=== PATIENT | female | born 1950 | race Caucasian/White ===

== ENCOUNTER → 2017-01-21 | Outpatient (CLI) | payer MEDICARE, OTHER ==
[2015-04-06 11:37] VITALS: BP 171/74
[~2017-01-21] MED LIST: ALPR0.25 PO; ATOR40TA59 PO; BENZ100C PO; DIPH25CA58 PO; GABA600T2 PO; LEVO50TA5 PO; MELA3TAB2 PO; OXYB92GE TD; PANT40TA5 PO; TRIA1CAP3 PO; WARF1TAB7 PO; [UNRECOGNIZED DRUG - CODE] TP
--- NOTE | 2017-01-21 16:16 | RAD ---
EXAM: Carotid Doppler sonogram. HISTORY: Headaches. TECHNIQUE: Christiansen scale and color Doppler sonographic evaluation of the neck with spectral waveform analysis was performed and static images are submitted for review. FINDINGS: RIGHT: The peak systolic velocity within the common carotid artery is 75 cm/sec. The peak systolic velocity within the internal carotid artery is 74 cm/sec and the end diastolic velocity within the internal carotid artery is 26 cm/sec. The ICA/CCA ratio is 1.0. Grayscale images demonstrate no significant plaquing. LEFT: The peak systolic velocity within the common carotid artery is 76 cm/sec. The peak systolic velocity within the internal carotid artery is 94 cm/sec and the end diastolic velocity within the internal carotid artery is 38 cm/sec. The ICA/CCA ratio is 1.2. Grayscale images demonstrate no significant plaquing. There is antegrade flow within both vertebral arteries. IMPRESSION: 1. No evidence of hemodynamically significant stenosis. PQRS Compliance Statement - Stenosis calculations for CT, MR and conventional angiography are based upon measurement of the distal ICA diameter in accordance with the NASCET methodology. Stenosis calculations for carotid ultrasound studies are derived from validated velocity criteria which are known to correlate with the NASCET methodology.
== END | disposition home or self-care (01) ==
LOC: US 14:58
PROVIDERS: ATTEND Family Medicine
DX: R51 Headache (principal); G45.9 Transient cerebral ischemic attack, unspecified; F17.200 Nicotine dependence, unspecified, uncomplicated
CPT/HCPCS: 93880

== ENCOUNTER → 2017-02-18 | Outpatient (CLI) | payer MEDICARE, OTHER ==
[2015-04-06 11:37] VITALS: BP 171/74
--- NOTE | 2017-02-18 16:02 | RAD ---
EXAM: MAMMO KRISTY SCREENING BILATERAL HISTORY: Routine Screening. COMPARISON: 08/03/2013 Standard mammographic views are obtained of the bilateral breasts. Additionally three-dimensional tomographic images obtained. This study was interpreted with the benefit of Computerized Aided Detection (CAD). FINDINGS: The breast parenchyma is heterogeneously dense, which could reduce sensitivity of mammography. Breast parenchyma level C.. There is no definite new suspicious spiculated mass. There is repeat demonstration of some scattered calcifications throughout the bilateral breasts. IMPRESSION: No definite new suspicious mass. BI-RADS CATEGORY: 2 BENIGN FINDING RECOMMENDED FOLLOW-UP: 12M 12 MONTH FOLLOW-UP PQRS compliance statement: Patient information was entered into a reminder system with a target due date for the next mammogram. Mammography is a sensitive method for finding small breast cancers, but it does not detect them all and is not a substitute for careful clinical examination. A negative mammogram does not negate a clinically suspicious finding and should not result in delay in biopsying a clinically suspicious abnormality. "Our facility is accredited by the [employer] Mammography Program."
--- NOTE | 2017-02-18 16:56 | RAD ---
INDICATION: BACK PAIN COMPARISON: None. TECHNIQUE: Axial CT images were obtained through the lumbar spine. FINDINGS: Grade 1 anterolisthesis of L4 on 5. No definite acute fracture. Multilevel degenerative changes with disc protrusions and osteophyte formation as well as facet hypertrophy. Couple of subcentimeter sclerotic foci. Most commonly from bone island unless the patient has history of neoplasm. T12-L1: Osteophyte formation at vertebral body endplate with broad-based posterior disc protrusion. Mild central canal stenosis. Neural foramina are patent. L1-2: Mild retrolisthesis with anterior indentation of the thecal sac. Central canal is grossly patent. Mild bilateral neural foraminal stenosis from osteophyte formation and mild disc protrusion. L2-3: Osteophyte formation as well as broad-based posterior disc protrusion. Facet hypertrophy. Mild central canal narrowing. Mild to moderate right and mild left neural foraminal stenosis. L3-4: Broad-based posterior disc protrusion as well as osteophyte formation at the vertebral body endplates and facet hypertrophy. Mild to moderate central canal stenosis in trefoil pattern. Moderate right and puxo-ca-mrhphyph left neural foraminal stenosis. L4-5: Facet hypertrophy. Grade 1 anterolisthesis. Posterior disc protrusion with uncovering of the posterior aspect of the disc. At least moderate central canal stenosis. Moderate left greater than right neural foraminal stenosis. L5-S1: Central disc protrusion with anterior indentation of the thecal sac with mild central canal narrowing. Mild encroachment on the inferior aspect of the neural foramina from osteophyte formation without high-grade stenosis. IMPRESSION: Multilevel degenerative changes throughout the lumbar spine with disc protrusions, osteophyte formation at the vertebral body endplates as well as facet hypertrophy contributing to multilevel central canal and neural foraminal stenosis as described above. One of the most severe levels is at L4-5. PQRS Compliance Statement: One or more of the following individualized dose reduction techniques were utilized for this examination: 1. Automated exposure control 2. Adjustment of the mA and/or kV according to patient size 3. Use of iterative reconstruction technique
== END | disposition home or self-care (01) ==
LOC: MAMMO 14:17
PROVIDERS: ATTEND Family Medicine
DX: Z12.31 Encounter for screening mammogram for malignant neoplasm of breast (principal); M48.061 Spinal stenosis, lumbar region without neurogenic claudication; M51.26 Other intervertebral disc displacement, lumbar region; M47.896 Other spondylosis, lumbar region; M25.78 Osteophyte, vertebrae; M24.28 Disorder of ligament, vertebrae
CPT/HCPCS: 72131; 77063; G0202; 77067

== ENCOUNTER → 2017-03-26 | Outpatient (CLI) | payer MEDICARE, OTHER ==
[2015-04-06 11:37] VITALS: BP 171/74
[~2017-03-26] MED LIST changes: +AMLO5TAB4 PO; +ASPI325T8 PO; +LACT1CAP19 PO; +LACT1CAP21 PO; +NITR100C63 PO; +OXYB5TAB33 PO
== END | disposition home or self-care (01) ==
LOC: SURG 13:55
PROVIDERS: ATTEND Anesthesiology
DX: M47.816 Spondylosis without myelopathy or radiculopathy, lumbar region (principal); K21.9 Gastro-esophageal reflux disease without esophagitis; M19.91 Primary osteoarthritis, unspecified site; E03.9 Hypothyroidism, unspecified; Z88.6 Allergy status to analgesic agent; Z88.1 Allergy status to other antibiotic agents; Z88.0 Allergy status to penicillin; Z88.2 Allergy status to sulfonamides; Z86.73 Personal history of transient ischemic attack (TIA), and cerebral infarction without residual deficits
CPT/HCPCS: 64493; 64494; 64495; 99204

== ENCOUNTER → 2017-03-28 | Day surgery (SDC) | payer MEDICARE, OTHER ==
[2015-04-06 11:37] VITALS: BP 171/74
[~2017-03-28] MED LIST changes: -AMLO5TAB4 PO; -ASPI325T8 PO; +BUPIVACAINE MPF 0.25% 10 ML VIAL. ONE; +DEXAMETHASONE SOD PHOS 4 MG/ML VIAL ONE; +IV RINGERS SOLUTION,LACTATED 1,000 ML IV ONE; -LACT1CAP19 PO; -LACT1CAP21 PO; +LIDOCAINE 1% PF 30 ML VIAL. ONE; +LIDOCAINE 2% PF Vial for OR 5 ML VIAL. ONE; -NITR100C63 PO; -OXYB5TAB33 PO; +PROPOFOL 40 ML IV ONE
== END | disposition home or self-care (01) ==
LOC: SURG 13:25
PROVIDERS: ATTEND Internal Medicine Gastroenterology
DX: K64.8 Other hemorrhoids (principal); K57.30 Diverticulosis of large intestine without perforation or abscess without bleeding; D50.9 Iron deficiency anemia, unspecified; K22.8 Other specified diseases of esophagus; K92.2 Gastrointestinal hemorrhage, unspecified; K31.89 Other diseases of stomach and duodenum; I10 Essential (primary) hypertension; E03.9 Hypothyroidism, unspecified; M19.91 Primary osteoarthritis, unspecified site; Z86.73 Personal history of transient ischemic attack (TIA), and cerebral infarction without residual deficits; Z88.6 Allergy status to analgesic agent; Z88.2 Allergy status to sulfonamides; Z88.8 Allergy status to other drugs, medicaments and biological substances
CPT/HCPCS: 43239; 45378; J1100; J2001; J2704; J3490; J7120

== ENCOUNTER → 2017-04-09 | Outpatient (CLI) | payer MEDICARE, OTHER ==
[2015-04-06 11:37] VITALS: BP 171/74
[~2017-04-09] MED LIST changes: -DEXAMETHASONE SOD PHOS 4 MG/ML VIAL ONE; -IV RINGERS SOLUTION,LACTATED 1,000 ML IV ONE; -LIDOCAINE 2% PF Vial for OR 5 ML VIAL. ONE; -PROPOFOL 40 ML IV ONE
== END | disposition home or self-care (01) ==
LOC: SURG 15:33
PROVIDERS: ATTEND Anesthesiology
DX: M47.816 Spondylosis without myelopathy or radiculopathy, lumbar region (principal); J44.9 Chronic obstructive pulmonary disease, unspecified; I10 Essential (primary) hypertension; M19.91 Primary osteoarthritis, unspecified site; E07.9 Disorder of thyroid, unspecified; Z72.89 Other problems related to lifestyle; Z90.710 Acquired absence of both cervix and uterus; Z88.0 Allergy status to penicillin
CPT/HCPCS: 64493; 64494; J2001; J3490

== ENCOUNTER 2017-04-13 14:25 | Inpatient (IN) | payer MEDICARE, OTHER ==
[~2017-04-13] VITALS: Ht 152.4 cm; Wt 86.8 kg
[~2017-04-13 14:25] MED LIST changes: -BUPIVACAINE MPF 0.25% 10 ML VIAL. ONE; -LIDOCAINE 1% PF 30 ML VIAL. ONE
--- NOTE | 2017-04-13 15:06 | RAD ---
CT head without contrast 04/13/2017 Clinical indication: Headache and dizziness. Comparison: None. Technique: Multiple CT images of the head were obtained without contrast. RS Compliance Statement: One or more of the following individualized dose reduction techniques were utilized for this examination: 1. Automated exposure control 2. Adjustment of the mA and/or kV according to patient size 3. Use of iterative reconstruction technique Findings: No acute intracranial hemorrhage or extra-axial fluid collection. The ortiz-white matter interfaces are maintained. No midline shift. The ventricles and subarachnoid spaces are normal in size and configuration for age. The basal cisterns are patent and. There is possible air communication from the right external auditory canal to the mastoid air cells as seen on series 2/image 6. Impression: 1. No acute intracranial hemorrhage. 2. Possible abnormal communication of the right external auditory canal with the mastoid air cells, may be due to underlying posterior wall erosion. Clinical correlation is recommended. Consideration for CT temporal bone for further evaluation.
--- NOTE | 2017-04-13 15:09 | ED.ADGEN ---
Past History Past Medical History: Arthritis, GERD, Hypertension, Other Past Surgical History: Other Alcohol Use: Rarely Drug Use: None Adult General HPI HPI Patient is a 66-year-old female presents with chest pressure and dizziness 6 excisional female presents with chest pressure and dizziness. Dizziness began this morning. She's "bouncing off the castillo". She does have some nausea with it. She's not had any difficulty speaking no focal weakness. She's had some blurred vision but she says she is not seeing double. She's not had any difficulty finding words. Symptoms are constant. Currently her symptoms have improved somewhat. She's been having a chest heaviness since this morning. No chest pain. No radiation of the heaviness of the shoulder to the back of the neck or the front of the neck. She's not had any shortness of breath with it no peripheral edema or pain in the legs. She denies history of heart problems in the past. She does have lupus. She is on antibiotics for GERD. Not had any vomiting. Review of Systems Review of Systems Constitutional: Denies fever or chills Eyes: Denies change in visual acuity, redness, or eye pain HENT: Denies nasal congestion or sore throat Respiratory: Denies cough or shortness of breath Cardiovascular: No additional information not addressed in HPI GI: Denies abdominal pain, nausea, vomiting, bloody stools or diarrhea : Denies dysuria or hematuria Musculoskeletal: Denies back pain or joint pain Integument: Denies rash or skin lesions Neurologic: Denies headache, focal weakness or sensory changes Endocrine: Denies polyuria or polydipsia All other systems were reviewed and found to be within normal limits, except as documented in this note. Current Medications Current Medications Current Medications Medications (Trade) Dose Ordered Sig/[facility] Start Time Stop Time Status Last Admin Dose Admin Aspirin (Children'S Aspirin) 324 mg 1X ONCE 04/13/17 16:15 04/13/17 17:24 DC 04/13/17 16:33 324 MG Allergies Allergies Allergies Coded Allergies Type Severity Reaction Last Updated Verified Penicillins Allergy Intermediate 04/03/15 Yes Sulfa (Sulfonamide Antibiotics) Allergy Intermediate 04/03/15 Yes aspirin Allergy Intermediate 04/03/15 Yes cephalexin Allergy Intermediate 04/03/15 Yes codeine Allergy Intermediate 04/03/15 Yes ceftriaxone Adverse Reaction Intermediate Nausea 04/05/15 Yes Physical Exam Physical Exam Constitutional: Well developed, well nourished, no acute distress, non-toxic appearance. HENT: Normocephalic, atraumatic, bilateral external ears normal, oropharynx moist, no oral exudates, nose normal. Eyes: PERRLA, EOMI, conjunctiva normal, no discharge. Neck: Normal range of motion, no tenderness, supple, no stridor. Cardiovascular:Heart rate regular rhythm, no murmur Lungs & Thorax: Bilateral breath sounds clear to auscultation Abdomen: Bowel sounds normal, soft, no tenderness, no masses, no pulsatile masses. Skin: Warm, dry, no erythema, no rash. Back: No tenderness, no CVA tenderness. Extremities: No tenderness, no cyanosis, no clubbing, ROM intact, no edema. Neurologic: Alert and oriented X 3, normal motor function, normal sensory function, no focal deficits noted. Normal [id number]. Normal speech. Psychologic: Affect normal, judgement normal, mood normal. Current Patient Data Vital Signs Vital Signs Date Time Temp Pulse Resp B/P (MAP) Pulse Ox O2 Delivery O2 Flow Rate FiO2 04/13/17 14:39 98.2 79 20 98 Room Air Lab Results Laboratory Tests Test 04/13/17 15:00 04/13/17 15:15 White Blood Count 7.7 x10^3/uL (4.0-11.0) Red Blood Count 3.75 x10^6/uL (3.50-5.40) Hemoglobin 10.6 g/dL (12.0-15.5) L Hematocrit 32.8 % (36.0-47.0) L Mean Corpuscular Volume 88 fL (79-100) Mean Corpuscular Hemoglobin 28 pg (25-35) Mean Corpuscular Hemoglobin Concent 32 g/dL (31-37) Red Cell Distribution Width 19.7 % (11.5-14.5) H Platelet Count 264 x10^3/uL (140-400) Neutrophils (%) (Auto) 58 % (31-73) Lymphocytes (%) (Auto) 29 % (24-48) Monocytes (%) (Auto) 8 % (0-9) Eosinophils (%) (Auto) 5 % (0-3) H Basophils (%) (Auto) 1 % (0-3) Neutrophils # (Auto) 4.5 x10^3uL (1.8-7.7) Lymphocytes # (Auto) 2.2 x10^3/uL (1.0-4.8) Monocytes # (Auto) 0.6 x10^3/uL (0.0-1.1) Eosinophils # (Auto) 0.4 x10^3/uL (0.0-0.7) Basophils # (Auto) 0.1 x10^3/uL (0.0-0.2) Sodium Level 144 mmol/L (136-145) Potassium Level 4.0 mmol/L (3.5-5.1) Chloride Level 107 mmol/L (98-107) Carbon Dioxide Level 28 mmol/L (21-32) Anion Gap 9 (6-14) Blood Urea Nitrogen 18 mg/dL (7-20) Creatinine 0.9 mg/dL (0.6-1.0) Estimated GFR (Cockcroft-Gault) 62.6 BUN/Creatinine Ratio 20 (6-20) Glucose Level 93 mg/dL (70-99) Calcium Level 9.3 mg/dL (8.5-10.1) Total Bilirubin 0.3 mg/dL (0.2-1.0) Aspartate Amino Transferase (AST) 12 U/L (15-37) L Alanine Aminotransferase (ALT) 16 U/L (14-59) Alkaline Phosphatase 72 U/L (46-116) Troponin I Quantitative < 0.017 ng/mL (0-0.055) DV-Sqg-U-Type Natriuretic Peptide 164 pg/mL (0-124) H Total Protein 6.5 g/dL (6.4-8.2) Albumin 3.8 g/dL (3.4-5.0) Albumin/Globulin Ratio 1.4 (1.0-1.7) Urine Collection Type Unknown Urine Color Yellow Urine Clarity Hazy Urine pH 6.0 Urine Specific [place] 1.025 Urine Protein Neg (NEG-TRACE) Urine Glucose (UA) Neg mg/dL (NEG) Urine Ketones (Stick) Neg mg/dL (NEG) Urine Blood Small (NEG) Urine Nitrite Neg (NEG) Urine Bilirubin Neg (NEG) Urine Urobilinogen Dipstick 0.2 mg/dL (0.2 mg/dL) Urine Leukocyte Esterase Small (NEG) Urine RBC 6-10 /HPF (0-2) Urine WBC 11-20 /HPF (0-4) Urine Squamous Epithelial Cells Mod /LPF Urine Bacteria Few /HPF (0-FEW) EKG EKG []EKG is normal sinus rhythm with a leftward axis deviation. RSR'; Rate of 74. No acute ischemic changes. Radiology/Procedures Radiology/Procedures []REASON: diziness PROCEDURE: CT HEAD WO CONTRAST CT head without contrast 04/13/2017 Clinical indication: Headache and dizziness. Comparison: None. Technique: Multiple CT images of the head were obtained without contrast. PQRS Compliance Statement: One or more of the following individualized dose reduction techniques were utilized for this examination: 1. Automated exposure control 2. Adjustment of the mA and/or kV according to patient size 3. Use of iterative reconstruction technique Findings: No acute intracranial hemorrhage or extra-axial fluid collection. The ortiz-white matter interfaces are maintained. No midline shift. The ventricles and subarachnoid spaces are normal in size and configuration for age. The basal cisterns are patent and. There is possible air communication from the right external auditory canal to the mastoid air cells as seen on series 2/image 6. Impression: 1. No acute intracranial hemorrhage. 2. Possible abnormal communication of the right external auditory canal with the mastoid air cells, may be due to underlying posterior wall erosion. Clinical correlation is recommended. Consideration for CT temporal bone for further evaluation. DICTATED AND SIGNED BY: FOREIGN GAR MD DATE: 04/13/17 1376 CC: AGNES CASTILLO MD; GOYO ESCALONA MD ~ CXR is normal int by radiologist. Course & Med Decision Making Course & Med Decision Making Pertinent Labs and Imaging studies reviewed. (See chart for details) Patient has a negative initial cardiac workup. Will admit for cardiac evaluation. She states that she does have an ENT doctor and will follow up with them regarding the abnormal CT finding of the auditory canal. Admitted in stable condition. Dx: chest pain, vertigo Final Impression Final Impression chest pain and vertigo[] Problems: Dragon Disclaimer Dragon Disclaimer This electronic medical record was generated, in whole or in part, using a voice recognition dictation system. GOYO ESCALONA MD Apr 13, 2017 15:09
--- NOTE | 2017-04-13 15:10 | RAD ---
AP chest 04/13/2017 Clinical indication: Chest pain. Comparison: 04/02/2015 chest Findings: Cardiac and mediastinal silhouettes are unremarkable. No pleural effusion, pneumothorax or focal consolidation. Impression: No acute cardiopulmonary abnormality.
--- NOTE | 2017-04-13 15:18 | EKG ---
[address] [address] Test Date: 2017-04-13 Test Time: 14:39:23 Pat Name: YANA ARORA Department: Room: Gender: F Youth Agent: GRAEME : [id number] Requested By: GOYO ESCALONA Order Number: [id number] Reading MD: Measurements Intervals [place] Rate: 74 P: 26 OR: 156 QRS: -8 QRSD: 94 T: 10 QT: 384 QTc: 427 Interpretive Statements SINUS RHYTHM LEFTWARD AXIS QRS(T) CONTOUR ABNORMALITY CONSIDER ANTEROSEPTAL MYOCARDIAL DAMAGE POSSIBLY ABNORMAL ECG RI6.01 Unconfirmed report No previous ECG available for comparison
[2017-04-13 15:25] LABS: BASO # 0.1 x10^3/uL (0.0-0.2); BASO % 1 % (0-3); EOS # 0.4 x10^3/uL (0.0-0.7); EOS % 5 % (0-3); HEMATOCRIT 32.8 % (36.0-47.0); HEMOGLOBIN 10.6 g/dL (12.0-15.5); LYMPH # 2.2 x10^3/uL (1.0-4.8); LYMPH % 29 % (24-48); MEAN CORPUSCULAR HEMOGLOBIN 28 pg (25-35); MEAN CORPUSCULAR HGB CONC 32 g/dL (31-37); MEAN CORPUSCULAR VOLUME 88 fL (79-100); MONO # 0.6 x10^3/uL (0.0-1.1); MONO % 8 % (0-9); NEUT # 4.5 x10^3uL (1.8-7.7); NEUT % 58 % (31-73); PLATELET COUNT 264 x10^3/uL (140-400); RED BLOOD COUNT 3.75 x10^6/uL (3.50-5.40); RED CELL DISTRIBUTION WIDTH 19.7 % (11.5-14.5); WHITE BLOOD COUNT 7.7 x10^3/uL (4.0-11.0)
[2017-04-13 15:41] LABS: ALBUMIN 3.8 g/dL (3.4-5.0); ALBUMIN/GLOBULIN RATIO 1.4 (1.0-1.7); CALCIUM 9.3 mg/dL (8.5-10.1); CREATININE 0.9 mg/dL (0.6-1.0); GFR 62.6; TOTAL BILIRUBIN 0.3 mg/dL (0.2-1.0); TOTAL PROTEIN 6.5 g/dL (6.4-8.2)
[2017-04-13 15:46] LABS: BILIRUBIN,URINE NEG (NEG); CLARITY,URINE HAZY; COLOR,URINE YELLOW; GLUCOSE,URINE NEG (NEG)
[2017-04-13 15:47] LABS: BACTERIA,URINE FEW /HPF (0-FEW); NITRITE,URINE NEG (NEG); SQUAMOUS EPITHELIAL CELL,UR MOD /LPF; UROBILINOGEN,URINE 0.2 mg/dL (0.2 mg/dL)
[2017-04-13] MEDS ORDERED: ASPIRIN 81 MG TAB.CHEW PO ONE (16:15)
[2017-04-13 18:32] VITALS: BP 142/82
[2017-04-13] MEDS ORDERED: OXYB5TAB33 PO (18:54)
[2017-04-13] MEDS ORDERED: AMLO5TAB4 PO (18:54)
[2017-04-13] MEDS: BENZONATATE 100 MG CAPSULE. PO SCH (21:00)
[2017-04-13] MEDS: PANTOPRAZOLE 40 MG TABLET. PO SCH (21:01)
[2017-04-13] MEDS: MELATONIN 3 MG TABLET PO SCH (21:01)
[2017-04-13] MEDS: diphenhydrAMINE HCL 25 MG CAPSULE PO SCH (21:01)
[2017-04-13] MEDS: OXYBUTYNIN CHLORIDE 5 MG TABLET PO SCH (21:01)
[2017-04-13] MEDS: ALPRAZolam 0.25 MG TABLET PO SCH (21:01)
[2017-04-13] MEDS: ATORVASTATIN CALCIUM 20 MG TABLET PO SCH (21:01)
[2017-04-13] MEDS: GABAPENTIN 300 MG CAPSULE. PO SCH (21:01)
[2017-04-13 23:26] VITALS: BP 107/60
[2017-04-14] VITALS (10 sets, daily range): BP systolic 104–182; BP diastolic 57–87
[2017-04-14] MEDS: LEVOTHYROXINE 50 MCG TABLET PO SCH (05:40)
[2017-04-14] MEDS: OXYBUTYNIN CHLORIDE 5 MG TABLET PO SCH ×2 (08:42→20:46)
[2017-04-14] MEDS: ACETAMINOPHEN 500 MG TABLET PO PRN ×2 (08:42→20:46)
[2017-04-14] MEDS: ALPRAZolam 0.25 MG TABLET PO SCH ×3 (08:42→20:46)
[2017-04-14] MEDS: BENZONATATE 100 MG CAPSULE. PO SCH ×3 (08:42→20:47)
[2017-04-14] MEDS: PANTOPRAZOLE 40 MG TABLET. PO SCH ×2 (08:42→20:47)
[2017-04-14] MEDS: TRIAMTERENE/HCTZ 37.5/25MG TABLET. PO SCH (08:42)
[2017-04-14] MEDS: amLODIPine BESYLATE 5 MG TABLET PO SCH (08:43)
[2017-04-14] MEDS ORDERED: [UNRECOGNIZED DRUG - OTHER] PO SCH (09:00)
[2017-04-14] MEDS: CIPROFLOXACIN HCL 250 MG TABLET PO SCH ×2 (11:35→20:46)
--- NOTE | 2017-04-14 12:47 | RAD ---
Ultrasound bilateral carotid 04/14/2017 Clinical indication: Garbled speech. COMPARISON: None. TECHNIQUE: Color, grayscale and doppler ultrasound images obtained of the carotid system bilaterally. Percent stenosis is estimated using criteria that correlates with NASCET methodology. FINDINGS: Peak systolic velocities are as follows in cm/s: Right Carotid System: Mid CCA: 76 cm/s Mid ICA: 95 cm/s Mid ICA 80 the: 38 cm/s ECA: 75 cm/s ICA/CCA ratio: 1.2 Left carotid system: Mid CCA: 97 cm/s Distal ICA: 99 cm/s Distal ICA 83:53 cm/s ECA: 66 cm/s ICA/CCA ratio: 1.0 Vertebral arteries are antegrade bilaterally. IMPRESSION: No hemodynamically significant stenosis of the internal carotid arteries bilaterally.
[2017-04-14] MEDS: HEPARIN PF for SUB-Q USE 5,000 UNIT/0.5 ML VIAL. SQ SCH ×2 (14:13→22:02)
--- NOTE | 2017-04-14 18:44 | HP ---
ADMIT DATE: HISTORY OF PRESENT ILLNESS: A 66-year-old female came in through the Emergency last night when she was having problems with chest pressure, dizziness, lightheadedness following she is bouncing off the castillo. She did have some nausea. She had some difficulty speaking. She told me she had difficulty speaking with some blurred vision. The patient was admitted to the hospital for further evaluation and rule out IA protocol. When I talked to the patient, the patient still had some chest pressure. The patient was admitted for further evaluation and treatment thereof. PAST MEDICAL HISTORY: She has had hearing problem or a plastic right ear drum. She has had transient ischemic attacks in the past, cardiac disorders of hypercholesterolemia, hypertension. She has had gastroesophageal reflux, hysterectomy, arthritis, hypothyroidism, panic disorders, anxiety. IMMUNIZATIONS: Up-to-date. FAMILY HISTORY: Mother had GI problems as well as cardiovascular problems. ALLERGIES: THE PATIENT HERSELF HAS ALLERGIES TO PENICILLIN, SULFONAMIDES, ASPIRIN, CEFTRIAXONE, KEFLEX, AND CODEINE. SOCIAL HISTORY: Denies smoking, alcohol or drug use. 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 He is pretty much dependent upon her care. REVIEW OF SYSTEMS: Outside of the chest pain as described in the HPI. The patient denies any shortness of breath, headaches, visual changes, blurred vision, double vision presently. The patient denies any nausea presently. Denies any problem with bowels or bladder. Neurologically presently, she is alert and oriented, although did note on admission that she was having problems with some blurred vision and her speech as well as her vision. PHYSICAL EXAMINATION: GENERAL: This is a pleasant white female, moderate amount of distress. VITAL SIGNS: Blood pressure 105/60, respiratory rate 73, pulse 32, afebrile. She is on 2 liters per nasal cannula. HEENT: The patient's head was atraumatic, normocephalic. Eyes: PERRLA without jaundice. Mouth and throat: Normal. NECK: Supple, no JVD or thyromegaly. LUNGS: Diminished, but clear. CARDIOVASCULAR: Regular sinus rhythm, S1, S2. ABDOMEN: Soft, nontender, no rebound or guarding. Positive bowel sounds. No hepatosplenomegaly noted. EXTREMITIES: No clubbing, cyanosis, edema. Pulses noted distally 2/4. NEUROLOGIC: Speech fluent, spontaneous, appropriate, answering questions well. LABORATORY DATA: So far are basically unremarkable on her troponins. Hemoglobin was slightly low at 10.6. BUN and creatinine stable. IMPRESSION AND PLAN: The patient will be monitored carefully. Rule out IA protocol. Consult with her fashion buyer to make further evaluation. With that, she had a CTA of her head, which was negative showing no obvious signs of stroke and she will have carotid Dopplers and consult with a neurologist as well. AGNES CASTILLO MD DR: PABLITO/ricardo JOB#: [id number] / [id number]
[2017-04-14] MEDS: ATORVASTATIN CALCIUM 20 MG TABLET PO SCH (20:46)
[2017-04-14] MEDS: GABAPENTIN 300 MG CAPSULE. PO SCH (20:46)
[2017-04-14] MEDS: LACTOBACILLUS RHAMNOSUS GG 1 CAPSULE. PO SCH (20:46)
[2017-04-14] MEDS: diphenhydrAMINE HCL 25 MG CAPSULE PO SCH (20:46)
[2017-04-14] MEDS: MELATONIN 3 MG TABLET PO SCH (20:47)
[2017-04-15] VITALS (10 sets, daily range): BP systolic 103–138; BP diastolic 56–81
[2017-04-15] MEDS: ACETAMINOPHEN 500 MG TABLET PO PRN (02:31)
[2017-04-15] MEDS: LEVOTHYROXINE 50 MCG TABLET PO SCH (06:00)
[2017-04-15] MEDS: HEPARIN PF for SUB-Q USE 5,000 UNIT/0.5 ML VIAL. SQ SCH ×3 (06:02→21:05)
[2017-04-15] MEDS: ASPIRIN 325 MG TABLET PO SCH (07:41)
[2017-04-15] MEDS: CIPROFLOXACIN HCL 250 MG TABLET PO SCH ×2 (08:38→21:02)
[2017-04-15] MEDS: LACTOBACILLUS RHAMNOSUS GG 1 CAPSULE. PO SCH ×2 (08:38→21:02)
[2017-04-15] MEDS: OXYBUTYNIN CHLORIDE 5 MG TABLET PO SCH ×2 (08:39→21:01)
[2017-04-15] MEDS: TRIAMTERENE/HCTZ 37.5/25MG TABLET. PO SCH (08:40)
[2017-04-15] MEDS: BENZONATATE 100 MG CAPSULE. PO SCH ×4 (08:40→21:01)
[2017-04-15] MEDS: PANTOPRAZOLE 40 MG TABLET. PO SCH ×2 (08:40→21:12)
[2017-04-15] MEDS: amLODIPine BESYLATE 5 MG TABLET PO SCH (08:40)
[2017-04-15] MEDS: ALPRAZolam 0.25 MG TABLET PO SCH ×3 (08:41→21:01)
--- NOTE | 2017-04-15 08:55 | PDOC2 ---
YAQUELIN FELDER APRN 04/15/17 0855: CONSULT Date of Admission DATE: 04/15/17 TIME: 08:48 Reason for Consult: chest pain Problem List Problems Medical Problems: (1) Chest pain Status: Acute (2) Vertigo Status: Acute History of Present Illness Ms Michael is a 66 year old female who presents with complaints of dizziness, loss of balance and chest heaviness that started early Saturday. She reports some increased stress with the care of her and believes this may be contributing. She reports the heaviness has been constant with no exacerbating or relieving factors. She denies associated dyspnea, nausea or diaphoresis. She denies any decline in functional capacity except as related to the balance issue. She denies congestive symptoms, she denies significant edema. Past Medical History transient ischemic attacks, hypercholesterolemia, hypertension, gastroesophageal reflux, arthritis, hypothyroidism, panic disorders, anxiety, lupus anticoagulant syndrome . Past Surgical History hysterectomy Family History heart disease Social History non smoker, no significant ETOH, no illicit drugs. 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 Current Medications Current Medications Aspirin (Children'S Aspirin) 324 mg 1X ONCE PO Last administered on 16:33; Start 04/13/17 at 16:15; Stop 04/13/17 at 17:24; Status DC Alprazolam (Xanax) 0.25 mg TID PO Last administered on 04/15/17 08:41; Start 04/13/17 at 21:00 Amlodipine Besylate (Norvasc) 5 mg DAILY PO Last administered on 04/15/17 08: 40; Start 04/14/17 at 09:00 Benzonatate (Tessalon Perle) 200 mg TID PO Last administered on 04/15/17 08: 40; Start 04/13/17 at 21:00 Diphenhydramine HCl (Benadryl) 50 mg QHS PO Last administered on 04/14/17 20: 46; Start 04/13/17 at 21:00 Levothyroxine Sodium (Synthroid) 50 mcg DAILY06 PO Last administered on 06:00; Start 04/14/17 at 06:00 Pantoprazole Sodium (Protonix) 40 mg BID PO Last administered on 04/15/17 08: 40; Start 04/13/17 at 21:00 Atorvastatin Calcium (Lipitor) 40 mg QHS PO Last administered on 04/14/17 20: 46; Start 04/13/17 at 21:00 Gabapentin (Neurontin) 600 mg QHS PO Last administered on 04/14/17 20:46; Start 04/13/17 at 21:00 Melatonin 6 mg QHS PO Last administered on 04/14/17 20:47; Start 04/13/17 at 21:00 Oxybutynin Chloride (Ditropan) 5 mg BID PO Last administered on 04/15/17 08: 39; Start 04/13/17 at 21:00 Non-Formulary Medication 1 cap DAILY PO ; Start 04/14/17 at 09:00; Status UNV Triamterene/HCTZ (Maxzide 37.5/ 25mg) 1 tab DAILY PO Last administered on 04/15 08:40; Start 04/14/17 at 09:00 Acetaminophen (Tylenol) 500 mg PRN Q6HRS PRN PO PAIN / TEMP Last administered on 04/15/17 02:31; Start 04/14/17 at 08:45 Ciprofloxacin (Cipro) 250 mg BID PO Last administered on 04/15/17 08:38; Start 04/14/17 at 11:30 Aspirin (Aniceto Aspirin) 325 mg DAILYWBKFT PO Last administered on 04/15/17 07 :41; Start 04/15/17 at 08:00 Heparin Sodium (Porcine) 5,000 unit Q8HRS SQ Last administered on 04/15/17 06 :02; Start 04/14/17 at 14:00 Lactobacillus Rhamnosus (Culturelle) 1 cap BID PO Last administered on 08:38; Start 04/14/17 at 21:00 Active Scripts Active Reported Norvasc (Amlodipine Besylate) 5 Mg Tablet 5 Mg PO DAILY Ditropan Xl (Oxybutynin Chloride) 5 Mg Tab.er.24 5 Mg PO DAILY Xanax (Alprazolam) 0.25 Mg Tablet 1 Tab PO TID Melatonin 3 Mg Tablet 2 Tab PO QHS Benadryl (Diphenhydramine Hcl) 25 Mg Capsule 2 Cap PO QHS Atorvastatin Calcium 40 Mg Tablet 40 Mg PO QHS Pantoprazole Sodium 40 Mg Tablet.dr 40 Mg PO BID Gabapentin 600 Mg Tablet 1 Tab PO HS Triamterene-Hctz 37.5-25 Mg Cp (Triamterene/Hydrochlorothiazid) 1 Each Capsule 1 Cap PO DAILY Tessalon Perle (Benzonatate) 100 Mg Capsule 200 Mg PO TID Levothyroxine Sodium 50 Mcg Tablet 50 Mcg PO last dose today next dose tomorrow Allergies: Coded Allergies: Penicillins (Verified Allergy, Intermediate, 04/03/15) Sulfa (Sulfonamide Antibiotics) (Verified Allergy, Intermediate, 04/03/15) aspirin (Verified Allergy, Intermediate, 04/03/15) cephalexin (Verified Allergy, Intermediate, 04/03/15) codeine (Verified Allergy, Intermediate, 04/03/15) ceftriaxone (Verified Adverse Reaction, Intermediate, Nausea, 04/05/15) Review of System as per HPI or negative General: Alert, Oriented X3, Cooperative, No acute distress HEENT: Atraumatic, EOMI Lungs: Clear to auscultation, Normal air movement Heart: Regular rate, Normal S1, Normal S2 Abdomen: Normal bowel sounds, Soft, No tenderness Extremities: No cyanosis, Normal pulses Neuro: Normal speech, Strength at 5/5 X4 ext Psych/Mental Status: Mental status NL, Mood NL VITALS Vital Signs Date Time Temp Pulse Resp B/P (MAP) Pulse Ox O2 Delivery O2 Flow Rate FiO2 04/15/17 08:40 71 139/67 04/15/17 06:39 17 Room Air 04/15/17 06:00 97.8 04/15/17 05:38 93 04/14/17 21:41 Labs Laboratory Tests Test 04/13/17 15:00 04/13/17 15:15 04/13/17 18:15 04/14/17 05:30 White Blood Count 7.7 x10^3/uL (4.0-11.0) Red Blood Count 3.75 x10^6/uL (3.50-5.40) Hemoglobin 10.6 g/dL (12.0-15.5) Hematocrit 32.8 % (36.0-47.0) Mean Corpuscular Volume 88 fL (79-100) Mean Corpuscular Hemoglobin 28 pg (25-35) Mean Corpuscular Hemoglobin Concent 32 g/dL (31-37) Red Cell Distribution Width 19.7 % (11.5-14.5) Platelet Count 264 x10^3/uL (140-400) Neutrophils (%) (Auto) 58 % (31-73) Lymphocytes (%) (Auto) 29 % (24-48) Monocytes (%) (Auto) 8 % (0-9) Eosinophils (%) (Auto) 5 % (0-3) Basophils (%) (Auto) 1 % (0-3) Neutrophils # (Auto) 4.5 x10^3uL (1.8-7.7) Lymphocytes # (Auto) 2.2 x10^3/uL (1.0-4.8) Monocytes # (Auto) 0.6 x10^3/uL (0.0-1.1) Eosinophils # (Auto) 0.4 x10^3/uL (0.0-0.7) Basophils # (Auto) 0.1 x10^3/uL (0.0-0.2) Sodium Level 144 mmol/L (136-145) Potassium Level 4.0 mmol/L (3.5-5.1) Chloride Level 107 mmol/L (98-107) Carbon Dioxide Level 28 mmol/L (21-32) Anion Gap 9 (6-14) Blood Urea Nitrogen 18 mg/dL (7-20) Creatinine 0.9 mg/dL (0.6-1.0) Estimated GFR (Cockcroft-Gault) 62.6 BUN/Creatinine Ratio 20 (6-20) Glucose Level 93 mg/dL (70-99) Calcium Level 9.3 mg/dL (8.5-10.1) Total Bilirubin 0.3 mg/dL (0.2-1.0) Aspartate Amino Transf (AST/SGOT) 12 U/L (15-37) Alanine Aminotransferase (ALT/SGPT) 16 U/L (14-59) Alkaline Phosphatase 72 U/L (46-116) Troponin I Quantitative < 0.017 ng/mL (0-0.055) < 0.017 ng/mL (0-0.055) JS-Dzh-N-Type Natriuretic Peptide 164 pg/mL (0-124) Total Protein 6.5 g/dL (6.4-8.2) Albumin 3.8 g/dL (3.4-5.0) Albumin/Globulin Ratio 1.4 (1.0-1.7) Urine Collection Type Unknown Urine Color Yellow Urine Clarity Hazy Urine pH 6.0 Urine Specific [place] 1.025 Urine Protein Neg (NEG-TRACE) Urine Glucose (UA) Neg mg/dL (NEG) Urine Ketones (Stick) Neg mg/dL (NEG) Urine Blood Small (NEG) Urine Nitrite Neg (NEG) Urine Bilirubin Neg (NEG) Urine Urobilinogen Dipstick 0.2 mg/dL (0.2 mg/dL) Urine Leukocyte Esterase Small (NEG) Urine RBC 6-10 /HPF (0-2) Urine WBC 11-20 /HPF (0-4) Urine Squamous Epithelial Cells Mod /LPF Urine Bacteria Few /HPF (0-FEW) Nasal Screen MRSA (PCR) Negative (Negative) Magnesium Level 2.0 mg/dL (1.8-2.4) Triglycerides Level 51 mg/dL (0-150) Cholesterol Level 95 mg/dL (0-200) LDL Cholesterol, Calculated 52 mg/dL (0-100) VLDL Cholesterol, Calculated 10 mg/dL (0-40) Non-HDL Cholesterol Calculated 62 mg/dL (0-129) HDL Cholesterol 33 mg/dL (40-60) Cholesterol/HDL Ratio 2.0 Test 04/14/17 11:32 D-Dimer (Maira) 0.28 mg/L (0.00-0.50) Images EKG - sinus rhythm, left axis, non specific t abn Carotid duplex - IMPRESSION: No hemodynamically significant stenosis of the internal carotid arteries bilaterally. CXR - Impression: No acute cardiopulmonary abnormality. CT head Impression: 1. No acute intracranial hemorrhage. 2. Possible abnormal communication of the right external auditory canal with the mastoid air cells, may be due to underlying posterior wall erosion. Assessment/Plan 1. Chest pain - prolonged with normal Katya, no acute ischemic changes. Await echo. 2. anemia with history of GI bleeding - planned for capsul study this week. 3. hypertension - controlled 4. hyperlipidemia - check lipids, continue statin If no significant abnormalities on echo, suggest RF reduction, management of anemia/GI bleeding and outpatient ischemic eval when stable. Problems: DOE BRIDGES MD 04/15/17 1521: CONSULT Allergies: Coded Allergies: Penicillins (Verified Allergy, Intermediate, 04/03/15) Sulfa (Sulfonamide Antibiotics) (Verified Allergy, Intermediate, 04/03/15) aspirin (Verified Allergy, Intermediate, 04/03/15) cephalexin (Verified Allergy, Intermediate, 04/03/15) codeine (Verified Allergy, Intermediate, 04/03/15) ceftriaxone (Verified Adverse Reaction, Intermediate, Nausea, 04/05/15) Assessment/Plan Patient seen and examined. Agree with GRINDER TENDER's assessment and plan. Chest pain with atypical features. Myocardial infarction ruled out. Check 2-D echo to rule out any wall motion abnormalities. Plan for ischemic evaluation as an outpatient. Continue current workup for possible GI bleed Thank you for your consultation. Problems: YAQUELIN FELDER APRN Apr 15, 2017 08:55 DOE BRIDGES MD Apr 15, 2017 15:21
[2017-04-15] MEDS: diphenhydrAMINE HCL 25 MG CAPSULE PO SCH (21:01)
[2017-04-15] MEDS: MELATONIN 3 MG TABLET PO SCH (21:01)
[2017-04-15] MEDS: ATORVASTATIN CALCIUM 20 MG TABLET PO SCH (21:02)
[2017-04-15] MEDS: GABAPENTIN 300 MG CAPSULE. PO SCH (21:12)
[2017-04-15] MEDS ORDERED: VANCOMYCIN PER PHARMACY MC PRN (22:15)
[2017-04-16] MEDS ORDERED: VANCOMYCIN 2 GM in IV NORMAL SALINE 500ML 500 ML IV ONE ×2
[2017-04-16] MEDS: ACETAMINOPHEN 500 MG TABLET PO PRN (01:33)
[2017-04-16 03:00] VITALS: BP 101/54
[2017-04-16] MEDS: LEVOTHYROXINE 50 MCG TABLET PO SCH (06:17)
[2017-04-16] MEDS: HEPARIN PF for SUB-Q USE 5,000 UNIT/0.5 ML VIAL. SQ SCH (06:23)
[2017-04-16] MEDS: TRIAMTERENE/HCTZ 37.5/25MG TABLET. PO SCH (07:53)
[2017-04-16] MEDS: CIPROFLOXACIN HCL 250 MG TABLET PO SCH (07:54)
[2017-04-16] MEDS: amLODIPine BESYLATE 5 MG TABLET PO SCH (07:54)
[2017-04-16] MEDS: PANTOPRAZOLE 40 MG TABLET. PO SCH (07:54)
[2017-04-16] MEDS: LACTOBACILLUS RHAMNOSUS GG 1 CAPSULE. PO SCH (07:54)
[2017-04-16] MEDS: OXYBUTYNIN CHLORIDE 5 MG TABLET PO SCH (07:54)
[2017-04-16] MEDS: BENZONATATE 100 MG CAPSULE. PO SCH (07:55)
[2017-04-16] MEDS: ASPIRIN 325 MG TABLET PO SCH (07:55)
[2017-04-16] MEDS: ALPRAZolam 0.25 MG TABLET PO SCH (07:55)
--- NOTE | 2017-04-16 08:41 | CARD ---
APPROVED REPORT EXAM: Two-dimensional and M-mode echocardiogram with Doppler and color Doppler. Other Information Quality : Good INDICATION Chest Pain 2D DIMENSIONS Left Atrium(2D)3.9 (1.6-4.0cm)IVSd1.0 (0.7-1.1cm) Aortic Root(2D)2.6 (2.0-3.7cm)LVDd5.0 (3.9-5.9cm) LVOT Diameter2.0 (1.8-2.4cm)PWd1.0 (0.7-1.1cm) LVDs3.2 (2.5-4.0cm)FS (%) 35.5 % SV75.8 mlLVEF(%)64.7 (>50%) Aortic Valve AoV Peak José Miguel.146.5cm/sAoV VTI29.5cm AO Peak GR.8.6mmHgLVOT Peak José Miguel.104.6cm/s LVOT VTI 23.19cmAO Mean GR.5mmHg GASTON (VMAX)2.32pz0NSI (VTI)2.38cm2 Mitral Valve MV E Jivngukq08.3cm/sMV DECEL CBLE182dg MV A Eeyybigj074.3cm/sE/A Ratio0.5 Tricuspid Valve TR P. Sfdcbbnr790qi/sRAP YJARKBDI5ydEn TR Peak Gr.18klOoHNTL71wkKt LEFT VENTRICLE The left ventricle is normal size. There is normal left ventricular wall thickness. Left ventricle sy stolic function is normal. The Ejection Fraction is 60-65%. There is normal LV segmental wall motion. Transmitral Doppler flow pattern is Grade I-abnormal relaxation pattern. RIGHT VENTRICLE The right ventricle is normal size. The right ventricular systolic function is normal. ATRIA The left atrium size is normal. The right atrium size is normal. The interatrial septum is intact wit h no evidence for an atrial septal defect or patent foramen ovale as noted on 2-D or Doppler imaging. AORTIC VALVE The aortic valve is mildly calcified. Doppler and Color Flow revealed no significant aortic regurgita tion. There is no significant aortic valvular stenosis. MITRAL VALVE The mitral valve is mildly thickened. There is no evidence of mitral valve prolapse. There is no mitr al valve stenosis. Doppler and Color-flow revealed trace mitral regurgitation. TRICUSPID VALVE The tricuspid valve is normal in structure and function. Doppler and Color Flow revealed trace tricus pid valve regurgitation. The PA pressure was estimated at 28 mmHg. There is no tricuspid valve prolap se or vegetation. There is no tricuspid valve stenosis. PULMONIC VALVE The pulmonic valve is borderline thickened. Doppler and Color Flow revealed trace pulmonic valvular r egurgitation. There is no pulmonic valvular stenosis. GREAT VESSELS The aortic root is normal in size. The ascending aorta is normal in size. The IVC is normal in size a nd collapses >50% with inspiration. PERICARDIAL EFFUSION There is no pleural effusion. There is no evidence of significant pericardial effusion. Critical Notification Critical Value: No <Conclusion> Left ventricle systolic function is normal. The Ejection Fraction is 60-65%. There is normal LV segmental wall motion. Transmitral Doppler flow pattern is Grade I-abnormal relaxation pattern. Trace mitral regurgitation. Trace tricuspid valve regurgitation. The PA pressure was estimated at 28 mmHg. There is no evidence of significant pericardial effusion.
[2017-04-16] MEDS ORDERED: LACT1CAP19 PO (09:55)
[2017-04-16] MEDS ORDERED: ASPI325T8 PO (09:55)
[2017-04-16] MEDS ORDERED: NITR100C63 PO ×2 (09:55→10:49)
[2017-04-16] MEDS ORDERED: LACT1CAP21 PO (10:49)
[2017-04-16 11:17] VITALS: BP 148/64
[2017-04-17] MEDS ORDERED: VANCOMYCIN 1.25 GM in IV NORMAL SALINE 250ML 250 ML IV SCH (00:30)
--- NOTE | 2017-04-17 01:38 | PN ---
DATE: SUBJECTIVE: A 66-year-old female in with chest pain. The patient is resting fairly comfortably, still complaining of some intermittent chest discomfort. Cardiology has ordered an echocardiogram to help decide any particular line of therapy for this patient. OBJECTIVE: VITAL SIGNS: Remained basically stable, ____, respiratory rate 16, pulse 80, afebrile. GENERAL: The patient is alert and oriented. LUNGS: Diminished, but clear. CARDIOVASCULAR: Regular sinus rhythm, S1, S2. ABDOMEN: Soft, nontender. EXTREMITIES: No clubbing, cyanosis nor edema. IMPRESSION: Chest pain, possible transient ischemic attack-like symptoms. PLAN: Continue to monitor the patient, accordingly make further evaluation on her as indicated. The patient's urine did grow Enterococcus faecalis and it is noted to be sensitive only to vancomycin (). The patient has also a bladder infection, Enterococcus and will continue on vancomycin for that as well. AGNES CASTILLO MD DR: PABLITO/ricardo JOB#: [id number] / [id number]
== END 2017-04-16 11:45 | disposition home or self-care (01) | DRG 303 ==
LOC: ER 14:25 → ICU 16:17
PROVIDERS: ADMIT Family Medicine; ATTEND Family Medicine
DX: I25.10 Atherosclerotic heart disease of native coronary artery without angina pectoris (principal); D68.62 Lupus anticoagulant syndrome; N30.90 Cystitis, unspecified without hematuria; D64.9 Anemia, unspecified; E03.9 Hypothyroidism, unspecified; E78.00 Pure hypercholesterolemia, unspecified; E78.5 Hyperlipidemia, unspecified; I10 Essential (primary) hypertension; F41.9 Anxiety disorder, unspecified; M19.90 Unspecified osteoarthritis, unspecified site; B95.2 Enterococcus as the cause of diseases classified elsewhere; K21.9 Gastro-esophageal reflux disease without esophagitis; Z86.73 Personal history of transient ischemic attack (TIA), and cerebral infarction without residual deficits; Z90.710 Acquired absence of both cervix and uterus; Z88.6 Allergy status to analgesic agent; Z88.1 Allergy status to other antibiotic agents; Z88.0 Allergy status to penicillin; Z88.2 Allergy status to sulfonamides; Z88.8 Allergy status to other drugs, medicaments and biological substances; Z82.49 Family history of ischemic heart disease and other diseases of the circulatory system
CPT/HCPCS: 36415; 70450; 71010; 80053; 80061; 81001; 83735; 83880; 84484; 85025; 85379; 87086; 87186; 87641; 93005; 93306; 93880; J3370; J7040; Q0163; 99285-25

== ENCOUNTER → 2017-07-01 | Outpatient (CLI) | payer MEDICARE, OTHER ==
[~2017-07-01] MED LIST changes: +AMLO5TAB4 PO; +ASPI325T8 PO; +LACT1CAP19 PO; +LACT1CAP21 PO; +NITR100C63 PO; +OXYB5TAB33 PO; +WARF1TAB69 PO; -WARF1TAB7 PO
--- NOTE | 2017-07-01 15:58 | RAD ---
Three-view lumbar spine series History: Low back pain. Findings: No compression fracture or discitis or osteolytic process is seen. Grade 1 anterolisthesis of L4-5 is seen. This may be secondary to facet nephropathy which is present at this level. Facet arthropathy is present at L3-4 and L5-S1 as well. There is mild degenerative disc space narrowing and endplate spurring throughout the lumbar spine. The transverse processes are intact. IMPRESSION: Degenerative lumbar spondylosis. Grade 1 anterolisthesis of L4-5 which may result in spinal canal stenosis at this level.
== END | disposition home or self-care (01) ==
LOC: DXRAD 13:41
PROVIDERS: ATTEND Family Medicine
DX: M47.896 Other spondylosis, lumbar region (principal); M48.061 Spinal stenosis, lumbar region without neurogenic claudication
CPT/HCPCS: 72100

== ENCOUNTER → 2017-07-03 | Outpatient (CLI) | payer MEDICARE, OTHER ==
--- NOTE | 2017-08-05 15:48 | RAD ---
MR#: [id number] Date of Study: 07/03/2017 Ordering Physician: DOE BRIDGES, Referring Physician: DOE BRIDGES, Tech: Madonna Arreola RDMS, RVT, RTR APPROVED REPORT Patient Location : OUT-PATIENT Indications Christiansen scale images of the bilateral SFJ, greater and lesser saphenous veins on limited images do not d emonstrate thrombus. Bilateral spectral waveforms and color doppler do not reveal any evidence of reflux in the greater an d lesser saphenous veins. Critical Notification Critical Value: No <Conclusion> 1. No evidence of reflux in the bilateral greater and lesser saphenous veins. Signed by : Tony Chen, Electronically Approved : 08/05/2017 15:47:33
== END | disposition home or self-care (01) ==
LOC: US 12:31
PROVIDERS: ATTEND Internal Medicine Cardiovascular Disease
DX: I87.2 Venous insufficiency (chronic) (peripheral) (principal); F17.200 Nicotine dependence, unspecified, uncomplicated
CPT/HCPCS: 93970

== ENCOUNTER → 2017-07-09 | Outpatient (CLI) | payer MEDICARE, OTHER ==
[~2017-07-09] MED LIST changes: +REGADENOSON 0.4 MG/5 ML DISP.SYRIN. IV ONE
--- NOTE | 2017-07-09 13:05 | RAD ---
MR#: [id number] Date of Study: 07/09/2017 Ordering Physician: DOE BRIDGES Referring Physician: LEONARDA OCONNOR Tech: RT Zeinab Adams) (N) APPROVED REPORT Test Type: Pharmacological Stress Nurse/Tech: RT Bryan (Katlin) (N) Test Indications: chest pain Cardiac History: none Medications: see EHR Medical History: HTN, asthma Resting ECG: sinus rhythm Resting Heart Rate: 53 bpm Resting Blood Pressure: 137/70mmHg Pretest Chest Pain: None Nurse/Tech Notes Consent: The procedure was explained to the patient in lay terms. Informed consent was witnessed. Winston eout was entered into [employer]. History and Stress Test performed by RT Bryan (Katlin) (N) Pharm. Details Pharmacologic stress testing was performed using 0.4mg per 5ml of regadenoson given intravenously ove r 7-10 seconds. POST EXERCISE Reason for Termination: Infusion complete Max HR: 92 bpm Max Blood Pressure: 123/57mmHg Chest Pain: No. Arrhythmia: No. ST Change: No. INTERPRETATION Stress EKG Conclusion: The resting EKG showed a sinus rhythm with minimal nonspecific ST segment martinez ges. The stress EKG shows no significant changes from baseline. No EKG evidence of stressed induced ischemia. Imaging Protocol IMAGE PROTOCOL: Rest Tc-99m/stress Tc-99m 1 day Rest: Stress: Viability: Radiopharm.Tc99m CxeuaejuoIb44m Sestamibi Glhl90bEy 35mCi Duration 20min. 15min. Img Date 07/09/2017 07/09/2017 Inj-Img Msjk11tds. 60min. Rest Admin Site:IV - Left AntecubitalAdministrator: RT Bryan (Katlin)(N) Stress Admin Site: IV - Left AntecubitalAdministrator: RT Zeinab Adams)(N) STRESS DATA End Diast. Vol.101.0mlAv. Heart Rate75.0bpm LVEDV index BSA2.0mlCardiac Output0.1L/min End Syst. Vol.29.0mlCO Index BSA5.4L/min LVESV index BSA1.0mlMyocardial Xvvl203.0g Eject. Coybsvzn38.0% Stress Rates Pk. Fill Rate3.12EDV/secLVtime Pk. Fill 230.36msec Pk. Empty Rate3.88ESV/secLVtime Pk. Bmqeq926.01msec 1/3 Pk. Fill1.56EDV/sec Stress Scores Regional WT0.00Summed WT0.00 Regional WM0.00Summed WM0.00 LV Perfusion The stress scans show a distal anterior apical defect. The rest scans show a distal anterior apical defect. Nuclear imaging shows a fixed distal anterior apical defect with no significant reversible ischemia. Wall Motion Left ventricular systolic function is normal with an ejection fraction of greater than 70%. LV Perf. Quant 17 Seg. SSS5.00 17 Seg. SRS4.00 17 Seg. SDS1.00 Stress Defect Extent (% LAD)16.30Rest Defect Extent (% LAD)23.80Rev. Defect Extent (% LAD)2.50 Stress Defect Extent (% LCX) 11.30Rest Defect Extent (% LCX)0.00Rev. Defect Extent (% LCX)1.30 Stress Defect Extent (% RCA)0.00Rest Defect Extent (% RCA)0.00Rev. Defect Extent (% RCA)0.00 Stress Defect Extent (% MARY GRACE)15.40Rest Defect Extent (% MARY GRACE)13.70Rev. Defect Extent (% MARY GRACE)5.00 Conclusion 1. No EKG evidence of stressed induced ischemia. 2. Fixed distal anterior apical defect with normal LV function. This is most consistent with an atten uation defect. A small previous infarct cannot be excluded. 3. Nuclear imaging shows no significant reversible ischemia. 4. Normal LV systolic function with ejection fraction of greater than 70% 5. Moderately low risk Lexiscan nuclear stress test. Signed by : Dejuan Marcos MD Electronically Approved : 07/09/2017 13:04:27
== END | disposition home or self-care (01) ==
LOC: NM 08:12
PROVIDERS: ATTEND Internal Medicine Cardiovascular Disease
DX: R07.9 Chest pain, unspecified (principal); I10 Essential (primary) hypertension; J45.909 Unspecified asthma, uncomplicated; F17.200 Nicotine dependence, unspecified, uncomplicated
CPT/HCPCS: 78452; 93017; 96374; 96375; 96376; A9500; J2785

== ENCOUNTER → 2017-08-20 | Outpatient (CLI) | payer MEDICARE, OTHER ==
[~2017-08-20] MED LIST changes: +BUPIVACAINE MPF 0.25% 10 ML VIAL. ONE; +DEXAMETHASONE SOD PHOS 4 MG/ML VIAL ONE; +IOHEXOL 300 MG/ML 50 ML VIAL. ONE; +LIDOCAINE 1% PF 30 ML VIAL. ONE; -REGADENOSON 0.4 MG/5 ML DISP.SYRIN. IV ONE
== END | disposition home or self-care (01) ==
LOC: SURG 11:36
PROVIDERS: ATTEND Anesthesiology
DX: M54.16 Radiculopathy, lumbar region (principal); Z88.0 Allergy status to penicillin; J45.909 Unspecified asthma, uncomplicated; M19.90 Unspecified osteoarthritis, unspecified site; Z86.73 Personal history of transient ischemic attack (TIA), and cerebral infarction without residual deficits; D64.9 Anemia, unspecified; Z90.710 Acquired absence of both cervix and uterus; Z98.890 Other specified postprocedural states
CPT/HCPCS: 64483; 64484; J1100; J2001; J3490; Q9967

== ENCOUNTER → 2017-09-24 | Outpatient (CLI) | payer MEDICARE, OTHER ==
[~2017-09-24] MED LIST changes: -BUPIVACAINE MPF 0.25% 10 ML VIAL. ONE; -DEXAMETHASONE SOD PHOS 4 MG/ML VIAL ONE; -IOHEXOL 300 MG/ML 50 ML VIAL. ONE; -LIDOCAINE 1% PF 30 ML VIAL. ONE
== END | disposition home or self-care (01) ==
LOC: SURG 12:41
PROVIDERS: ATTEND Anesthesiology
DX: M54.16 Radiculopathy, lumbar region (principal); M48.061 Spinal stenosis, lumbar region without neurogenic claudication; M47.817 Spondylosis without myelopathy or radiculopathy, lumbosacral region; I10 Essential (primary) hypertension; E07.9 Disorder of thyroid, unspecified; Z90.710 Acquired absence of both cervix and uterus
CPT/HCPCS: 99214

== ENCOUNTER → 2017-10-29 | Outpatient (CLI) | payer MEDICARE, OTHER ==
[~2017-10-29] MED LIST changes: +FLUT1DIS5 IH; +FLUT9.9S NS; +VORT10TA PO
[2017-10-29 14:21] LABS: BASO # 0.1 x10^3/uL (0.0-0.2); BASO % 1 % (0-3); EOS # 0.2 x10^3/uL (0.0-0.7); EOS % 3 % (0-3); HEMATOCRIT 38.3 % (36.0-47.0); HEMOGLOBIN 12.7 g/dL (12.0-15.5); LYMPH # 2.1 x10^3/uL (1.0-4.8); LYMPH % 35 % (24-48); MEAN CORPUSCULAR HEMOGLOBIN 32 pg (25-35); MEAN CORPUSCULAR HGB CONC 33 g/dL (31-37); MEAN CORPUSCULAR VOLUME 96 fL (79-100); MONO # 0.4 x10^3/uL (0.0-1.1); MONO % 7 % (0-9); NEUT # 3.2 x10^3uL (1.8-7.7); NEUT % 54 % (31-73); PLATELET COUNT 226 x10^3/uL (140-400); RED BLOOD COUNT 3.99 x10^6/uL (3.50-5.40); RED CELL DISTRIBUTION WIDTH 13.7 % (11.5-14.5); WHITE BLOOD COUNT 5.9 x10^3/uL (4.0-11.0)
[2017-10-29 14:28] LABS: BACTERIA,URINE FEW /HPF (0-FEW); BILIRUBIN,URINE NEG (NEG); CLARITY,URINE CLEAR; COLOR,URINE YELLOW; GLUCOSE,URINE NEG (NEG); NITRITE,URINE NEG (NEG); RBC,URINE 0 /HPF (0-2); SQUAMOUS EPITHELIAL CELL,UR FEW /LPF; UROBILINOGEN,URINE 0.2 mg/dL (0.2 mg/dL); WBC,URINE OCC /HPF (0-4)
== END | disposition home or self-care (01) ==
LOC: LAB 13:47
PROVIDERS: ATTEND Anesthesiology Pain Medicine
DX: Z01.812 Encounter for preprocedural laboratory examination (principal); I10 Essential (primary) hypertension; E78.00 Pure hypercholesterolemia, unspecified; E78.5 Hyperlipidemia, unspecified; E03.9 Hypothyroidism, unspecified; J44.9 Chronic obstructive pulmonary disease, unspecified
CPT/HCPCS: 36415; 81001; 85025

== ENCOUNTER → 2017-12-04 | Day surgery (SDC) | payer MEDICARE, OTHER ==
[~2017-12-04] MED LIST changes: +0.9 % SODIUM CHLORIDE 10 ML VIAL ONE; +ALBUTEROL SULFATE 2.5 MG/3 ML NEBU. NEB PRN; +ATROPINE 0.5 MG/5 ML DISP.SYRIN. IV PRN; +BUPIVACAINE MPF 0.5% 30 ML VIAL. ONE; +CLINDAMYCIN 600MG PREMIX 50 ML IV ONE; +IOHEXOL 300 MG/ML 50 ML VIAL. ONE; +IV RINGERS SOLUTION,LACTATED 1,000 ML IV SCH; +KETAMINE HCL 500 MG/10 ML VIAL. ONE; +LIDOCAINE 1% PF 30 ML VIAL. ONE; +LIDOCAINE 2% PF Vial for OR 5 ML VIAL. ONE; +MIDAZOLAM HCL PF 2 MG/2 ML VIAL. ONE; +NALOXONE 0.4 MG/ML VIAL. IV PRN; +ONDANSETRON PF 4 MG/2 ML VIAL. IV PRN; +PROCHLORPERAZINE 10 MG/2 ML VIAL. IV PRN; +PROPOFOL 60 ML IV ONE; +diphenhydrAMINE 50 MG/ML VIAL IV PRN
[2017-12-04 10:42] VITALS: BP 117/71
== END | disposition home or self-care (01) ==
LOC: SURG 07:28
PROVIDERS: ATTEND Anesthesiology Pain Medicine
DX: M48.062 Spinal stenosis, lumbar region with neurogenic claudication (principal); Z00.6 Encounter for examination for normal comparison and control in clinical research program; I10 Essential (primary) hypertension; E78.00 Pure hypercholesterolemia, unspecified; E03.9 Hypothyroidism, unspecified; F41.0 Panic disorder [episodic paroxysmal anxiety]; F32.9 Major depressive disorder, single episode, unspecified; J44.9 Chronic obstructive pulmonary disease, unspecified; K21.9 Gastro-esophageal reflux disease without esophagitis; Z86.73 Personal history of transient ischemic attack (TIA), and cerebral infarction without residual deficits; Z90.710 Acquired absence of both cervix and uterus; Z98.890 Other specified postprocedural states; M19.90 Unspecified osteoarthritis, unspecified site; D64.9 Anemia, unspecified; Z79.899 Other long term (current) drug therapy; Z79.01 Long term (current) use of anticoagulants; Z88.0 Allergy status to penicillin; Z88.2 Allergy status to sulfonamides; Z88.6 Allergy status to analgesic agent; Z88.5 Allergy status to narcotic agent; Z88.8 Allergy status to other drugs, medicaments and biological substances; Z82.49 Family history of ischemic heart disease and other diseases of the circulatory system; Z83.79 Family history of other diseases of the digestive system
CPT/HCPCS: 0275T; J2001; J2250; J2704; J3010; J3490; J7120; Q9967

== ENCOUNTER → 2018-10-28 | Outpatient (CLI) | payer MEDICARE, OTHER ==
[2017-12-04 10:42] VITALS: BP 117/71
[~2018-10-28] MED LIST changes: -0.9 % SODIUM CHLORIDE 10 ML VIAL ONE; -ALBUTEROL SULFATE 2.5 MG/3 ML NEBU. NEB PRN; -ATROPINE 0.5 MG/5 ML DISP.SYRIN. IV PRN; -BUPIVACAINE MPF 0.5% 30 ML VIAL. ONE; -CLINDAMYCIN 600MG PREMIX 50 ML IV ONE; -GABA600T2 PO; +GABA600T7 PO; -IOHEXOL 300 MG/ML 50 ML VIAL. ONE; -IV RINGERS SOLUTION,LACTATED 1,000 ML IV SCH; -KETAMINE HCL 500 MG/10 ML VIAL. ONE; -LIDOCAINE 1% PF 30 ML VIAL. ONE; -LIDOCAINE 2% PF Vial for OR 5 ML VIAL. ONE; -MIDAZOLAM HCL PF 2 MG/2 ML VIAL. ONE; -NALOXONE 0.4 MG/ML VIAL. IV PRN; -ONDANSETRON PF 4 MG/2 ML VIAL. IV PRN; -PROCHLORPERAZINE 10 MG/2 ML VIAL. IV PRN; -PROPOFOL 60 ML IV ONE; -diphenhydrAMINE 50 MG/ML VIAL IV PRN
--- NOTE | 2018-10-29 10:54 | RAD ---
DATE: 10/28/2018 EXAM: MAMMO KRISTY SCREENING BILATERAL HISTORY: Routine screening COMPARISON: 02/18/2017 This study was interpreted with the benefit of Computerized Aided Detection (CAD). Breast Density: HETERO The breast parenchyma is heterogenously dense, which could reduce sensitivity of mammography. Breast parenchyma level C. FINDINGS: Benign calcifications. No suspicious masses or distortion. IMPRESSION: No suspicious process. BI-RADS CATEGORY: 1 NEGATIVE RECOMMENDED FOLLOW-UP: 12M 12 MONTH FOLLOW-UP PQRS compliance statement: Patient information was entered into a reminder system with a target due date in one year for the next mammogram. Mammography is a sensitive method for finding small breast cancers, but it does not detect them all and is not a substitute for careful clinical examination. A negative mammogram does not negate a clinically suspicious finding and should not result in delay in biopsying a clinically suspicious abnormality. "Our facility is accredited by the [employer] Mammography Program."
== END | disposition home or self-care (01) ==
LOC: MAMMO 12:51
PROVIDERS: ATTEND Family Medicine
DX: Z12.31 Encounter for screening mammogram for malignant neoplasm of breast (principal); N64.89 Other specified disorders of breast
CPT/HCPCS: 77063; 77067

== ENCOUNTER → 2019-06-15 | Outpatient (CLI) | payer MEDICARE, OTHER ==
[2017-12-04 10:42] VITALS: BP 117/71
[~2019-06-15] MED LIST changes: -MELA3TAB2 PO; +MELA3TAB56 PO
--- NOTE | 2019-06-15 13:34 | RAD ---
EXAM: 3 Views Right Shoulder DATE: 06/15/2019 12:00 AM INDICATION: Fall from bed COMPARISON: No Prior FINDINGS: There is no evidence for acute fracture or dislocation. AC joint is congruent. AC joint degenerative changes are seen. Humeral head is not high riding. IMPRESSION: 1. No acute fracture or dislocation. 2. AC joint osteoarthritis. Electronically signed by: Ross Wilson MD (06/15/2019 1:31 PM) [id number]
--- NOTE | 2019-06-16 08:35 | RAD ---
Examination: ANKLE LEFT 3V History: Fell, pain Comparison/Correlation: None Findings: 3 view examination of the left ankle was performed. Pes planus noted. Moderate size calcaneal spur is present. Large os trigonum is present. Mild narrowing of the medial aspect of the patella mortise is noted. Spurring about the tibiotalar joint noted. Impression: Mild degenerative changes. No acute process. Electronically signed by: Dakota Law MD (06/16/2019 8:32 AM) [facility]
--- NOTE | 2019-06-16 08:37 | RAD ---
Examination: HIP LEFT 2 VIEW History: Fell from bed. Pain. Comparison/Correlation: None Findings: 2V left hip x-ray exam was performed. The left hip joint space is adequate. No significant degenerative change. No acute fracture or bone distortion. Soft tissues are unremarkable. Impression: No acute process. Consider further evaluation difficult process is a persistent concern. Electronically signed by: Dakota Law MD (06/16/2019 8:34 AM) [facility]
--- NOTE | 2019-06-16 08:47 | RAD ---
Examination: KNEE LEFT 3V History: Fell from bed. Comparison/Correlation: None Findings: 3 images of the left knee were obtained. The graft is significant spurring tricompartmental distribution is present. Significant medial compartment remodeling is present. Varus deformity of the knee is present. Small left knee joint effusion is present. No fracture or bone destruction. Impression: Advanced degenerative changes of the left knee. Remodeling of the medial compartment especially seen. Small knee joint effusion. Significant varus deformity. Electronically signed by: Dakota Law MD (06/16/2019 8:44 AM) [facility]
== END | disposition home or self-care (01) ==
LOC: DXRAD 12:33
PROVIDERS: ATTEND Family Medicine
DX: M77.32 Calcaneal spur, left foot (principal); M25.862 Other specified joint disorders, left knee; M19.072 Primary osteoarthritis, left ankle and foot; M17.12 Unilateral primary osteoarthritis, left knee; W06.XXXA Fall from bed, initial encounter; Y93.89 Activity, other specified; Y92.89 Other specified places as the place of occurrence of the external cause; Y99.8 Other external cause status
CPT/HCPCS: 73030; 73502; 73562; 73610

== ENCOUNTER 2019-07-12 09:43 | Emergency (ER) | payer MEDICARE, OTHER ==
[~2019-07-12] VITALS: Ht 152.4 cm; Wt 93.0 kg
[~2019-07-12 09:43] MED LIST changes: +MELA3TAB4 PO; -MELA3TAB56 PO
[2019-07-12 10:08] VITALS: BP 132/77
--- NOTE | 2019-07-12 10:08 | PHYS DOC ---
Past History Past Medical History: Arthritis, GERD, Hypertension, Other Past Surgical History: Other Alcohol Use: Rarely Drug Use: None Adult General Chief Complaint Chief Complaint: FLU SYMPTOM HPI HPI Patient is a 68-year-old female who presents with complaint of productive cough that started at about 3:00 this morning. Patient states that symptoms are similar to prior seasonal bronchitis that she develops. She denies any fever, chest pain or shortness of breath. She states that cough is been productive of green sputum. She states that nothing seems to worsen or improve her symptoms.[] Review of Systems Review of Systems Constitutional: Denies fever or chills [] HENT: Admits to mild sore throat [] Respiratory: Complains of cough without shortness of breath [] Cardiovascular: No additional information not addressed in HPI [] GI: Denies abdominal pain, nausea, vomiting or diarrhea [] Integument: Denies rash or skin lesions [] Neurologic: Denies headache, focal weakness or sensory changes [] Allergies Allergies Allergies Coded Allergies Type Severity Reaction Last Updated Verified Penicillins Allergy Intermediate 12/04/17 Yes Sulfa (Sulfonamide Antibiotics) Allergy Intermediate 12/04/17 Yes aspirin Allergy Intermediate 12/04/17 Yes cephalexin Allergy Intermediate 12/04/17 Yes codeine Allergy Intermediate 12/04/17 Yes azithromycin Allergy Unknown 12/04/17 Yes diclofenac Allergy Unknown 12/04/17 Yes metoclopramide Allergy Unknown 12/04/17 Yes ceftriaxone Adverse Reaction Intermediate Nausea 12/04/17 Yes Physical Exam Physical Exam Constitutional: Well developed, well nourished, no acute distress, non-toxic appearance. [] Cardiovascular:Heart rate regular rhythm, no murmur [] Lungs & Thorax: Bilateral breath sounds clear to auscultation [] Skin: Warm, dry, no erythema, no rash. [] Neurologic: Alert and oriented X 3, no focal deficits noted. [] EKG EKG [] Radiology/Procedures Radiology/Procedures [] Course & Med Decision Making Course & Med Decision Making Pertinent Labs and Imaging studies reviewed. (See chart for details) [] Dragon Disclaimer Dragon Disclaimer This electronic medical record was generated, in whole or in part, using a voice recognition dictation system. Departure Departure: Impression: Primary Impression: Acute bronchitis Disposition: 01 HOME, SELF-CARE Condition: STABLE Referrals: AGNES CASTILLO MD (PCP) Patient Instructions: Acute Bronchitis Scripts Levofloxacin (LEVAQUIN) 500 Mg Tablet 1 TAB PO DAILY for infection for 10 Days, #10 TAB 0 Refills Prov: YORDAN ALANIS Jr. DO 07/12/19 Problem Qualifiers Primary Impression: Acute bronchitis Bronchitis organism: unspecified organism Qualified Codes: J20.9 - Acute bronchitis, unspecified YORDAN ALANIS Jr. DO Jul 12, 2019 10:08
[2019-07-12] MEDS ORDERED: LEVO500T59 PO (10:28)
--- NOTE | 2019-07-12 10:29 | RAD ---
EXAM: Chest, 2 views. HISTORY: Cough. COMPARISON: 04/13/2017 FINDINGS: 2 views of the chest are obtained. There is no infiltrate, pleural effusion or pneumothorax. The heart is normal in size. IMPRESSION: No acute pulmonary finding. Electronically signed by: Brea Cook MD (07/12/2019 10:26 AM) [id number]
== END 2019-07-12 10:38 | disposition home or self-care (01) ==
LOC: ER 09:43
DX: J20.9 Acute bronchitis, unspecified (principal); M19.90 Unspecified osteoarthritis, unspecified site; K21.9 Gastro-esophageal reflux disease without esophagitis; I10 Essential (primary) hypertension; Z88.0 Allergy status to penicillin; Z88.2 Allergy status to sulfonamides; Z88.1 Allergy status to other antibiotic agents; Z88.5 Allergy status to narcotic agent; Z88.8 Allergy status to other drugs, medicaments and biological substances
CPT/HCPCS: 71046; 99283

== ENCOUNTER → 2019-07-20 | Outpatient (CLI) | payer MEDICARE, OTHER ==
[2019-07-12 10:08] VITALS: BP 132/77
[~2019-07-20] MED LIST changes: +LEVO500T59 PO
--- NOTE | 2019-07-20 08:41 | RAD ---
CT of the chest without contrast 07/20/2019 INDICATION: Cough, sore throat, low-grade fever. COMPARISON STUDY: Chest radiograph July 12, 2019 TECHNIQUE: Multidetector CT imaging of the chest performed without contrast FINDINGS: Heart size is normal. No pericardial effusion is identified. Significant diffuse coronary calcification noted. No pathologically enlarged mediastinal adenopathy is identified. Scattered small mediastinal lymph nodes noted. No pneumothorax or significant effusion is identified. No focal infiltrates are identified. Diffuse bronchiectasis noted. Areas of scarring in lung bases appear to be present. There is a 3 mm noncalcified nodule in the right middle lobe. There is a 4 mm subpleural noncalcified nodule in the right upper lobe. Limited visualization of the upper abdomen is unremarkable. No acute osseous changes are seen. IMPRESSION: 1. No evidence of acute infiltrate 2. 3 mm noncalcified nodule, right middle lobe. 4 mm noncalcified nodule, right lower lobe. 6-12 month follow-up CT recommended per guidelines listed below. 3. Mild bronchiectasis. Pulmonary Nodule Followup: Fleischner Society recommendations (Radiology 2005; 237; 395-400): In a low risk patient: 4mm or less - No follow up required. >4-6mm- 12 month follow up, if unchanged, no further follow up. >6-8mm- 6-12 month follow up, then at 18-24 months if no change. >8mm- 3, 9, 24 month follow up or consideration of PET/CT. In a high risk patient: <4mm - 12 month follow up, if unchanged then no further follow up. >4-6mm- 6-12 month follow up, then at 18-24 months if no change. >6-8mm- 3-6 month follow up, then at 9-12 months and [address] DOSING PQRS STATEMENT: One or more of the following individualized dose reduction techniques were utilized for this examination: 1. Automated exposure control 2. Adjustment of the mA and/or kV according to patient size 3. Use of iterative reconstruction technique Electronically signed by: Gerber Rodríguez MD (07/20/2019 8:38 AM) [id number]
== END | disposition home or self-care (01) ==
LOC: CT 08:01
PROVIDERS: ATTEND Family Medicine
DX: R91.1 Solitary pulmonary nodule (principal); J47.9 Bronchiectasis, uncomplicated; I25.10 Atherosclerotic heart disease of native coronary artery without angina pectoris; J98.4 Other disorders of lung
CPT/HCPCS: 71250

== ENCOUNTER → 2020-07-21 | Outpatient (CLI) | payer MEDICARE, OTHER ==
[~2020-07-21] MED LIST changes: -PANT40TA5 PO; +PANT40TA6 PO
--- NOTE | 2020-07-21 14:24 | RAD ---
Knees 3 views each HISTORY: Bilateral knee pain Left knee 3 views were taken of the left knee. There is severe arthritis with complete loss of joint space medi ally and prominent hypertrophic spurring. There is no acute fracture. Right knee 3 views right knee show severe arthritis with joint space narrowing medially and prominent spurring i n all 3 compartments. There is no acute fracture. IMPRESSION: 1. Osteoarthritis in both knees. Electronically signed by: Miah Jordan MD (07/21/2020 2:21 PM) [facility]
== END ==
LOC: DXRAD 12:29
PROVIDERS: ATTEND Orthopaedic Surgery
DX: M17.0 Bilateral primary osteoarthritis of knee (principal)
CPT/HCPCS: 73562

== ENCOUNTER → 2020-09-08 | Outpatient (CLI) | payer MEDICARE, OTHER | LOC: LAB 10:19 | PROVIDERS: ATTEND Orthopaedic Surgery | DX: Z01.812 Encounter for preprocedural laboratory examination (principal); M16.12 Unilateral primary osteoarthritis, left hip; Z96.652 Presence of left artificial knee joint; Z20.822 Contact with and (suspected) exposure to COVID-19 | CPT/HCPCS: U0003 ==

== ENCOUNTER 2020-09-29 18:14 | Emergency (ER) | payer MEDICARE, OTHER ==
[~2020-09-29] VITALS: Ht 154.9 cm; Wt 212.0 kg
--- NOTE | 2020-09-29 18:33 | PHYS DOC ---
Past History Past Medical History: Arthritis, GERD, Hypertension, Other Past Medical History Lupus anticoagulation syndrome Past Surgical History: Other Alcohol Use: Rarely Drug Use: None General Adult EDM: Chief Complaint: KNEE INJURY HPI: HPI: ".. I had surgery on the September 12.. and I was doing physical therapy today.. but it started bleeding.. and I could not get a hold of Dr. Schulte office... I was on Eliquis 2.5 twice a day.. and I have been taking naproxin. but the blood had soaked the dressing.. so I came in to get it checked..." Patient is a 70 year old FEMALE who presents with above hx and complaints of Lt knee status post repair on September 12, By Dr. Schulte. Patient has been on Eliquis 2.5 twice a day for her lupus anticoagulation syndrome. Patient also started taking naproxen 1 tablet twice a day for pain. Patient noted that during physical therapy today she had increased bleeding from suture line. Suture line is still closed with Steri-Strips. No obvious inflammation. No active bleeding at this time. Dressing does have some blood and serous material but no find of infection or sniffing inflammation. Patient has a follow-up on Saturday with Dr. Rubio. Patient does not take any other antiplatelet or anticoagulation meds. The dressing appears to have a serous component and not gregorio blood. Wound is not warm or hot. There is no obvious infectious drainage. Patient has significant past medical history of hearing deficits, and ear surgery with placement of his eardrum. Patient has history of TIAs in the past. Cardiac disorders. Elevated cholesterol, hypertension, GERD, hysterectomy, arthritis, hypothyroidism, panic disorders, anxiety, and multiple drug allergies. The patient. follows with Dr. Castillo. Review of Systems: Review of Systems: Constitutional: Denies fever or chills Eyes: Denies change in visual acuity HENT: Denies nasal congestion or sore throat Respiratory: Denies cough or shortness of breath Cardiovascular: Denies chest pain or edema GI: Denies abdominal pain, nausea, vomiting, bloody stools or diarrhea : Denies dysuria Musculoskeletal: Complains of bleeding from left knee Integument: Denies rash Neurologic: Denies headache, focal weakness or sensory changes Endocrine: Denies polyuria or polydipsia Lymphatic: Denies swollen glands Psychiatric: Denies depression or anxiety Family History: Family History: Noncontributory to presentation Current Medications: Current Meds: See nursing for home meds. Allergies: Allergies: Allergies Coded Allergies Type Severity Reaction Last Updated Verified Penicillins Allergy Intermediate 12/04/17 Yes Sulfa (Sulfonamide Antibiotics) Allergy Intermediate 12/04/17 Yes aspirin Allergy Intermediate 12/04/17 Yes cephalexin Allergy Intermediate 12/04/17 Yes codeine Allergy Intermediate 12/04/17 Yes azithromycin Allergy Unknown 12/04/17 Yes diclofenac Allergy Unknown 12/04/17 Yes metoclopramide Allergy Unknown 12/04/17 Yes ceftriaxone Adverse Reaction Intermediate Nausea 12/04/17 Yes Physical Exam: PE: Constitutional: no acute distress, non-toxic appearance. [] HENT: Normocephalic, atraumatic, bilateral external ears normal, oropharynx moist, no oral exudates, nose normal. [] Eyes: PERRLA, EOMI, conjunctiva normal, no discharge. [] Neck: Normal range of motion, no tenderness, supple, no stridor. [] Cardiovascular:Heart rate regular rhythm, no murmur [] PMI to the left Lungs & Thorax: Bilateral breath sounds equal apex on auscultation [] Abdomen: Bowel sounds normal, soft, no tenderness, no masses, no pulsatile masses. [Obese. Skin: Warm, dry, no erythema, no rash. [] Back: No tenderness, no CVA tenderness. [] Extremities: No significant tenderness, no cyanosis, no clubbing, ROM intact, bilateral leg edema. [] Serous and hemorrhagic drainage from left knee suture line. (As per HPI) Neurologic: Alert and oriented X 3, normal motor function, normal sensory f unction, no focal deficits noted. [] Psychologic: Affect anxious, judgement normal, mood normal. [] EKG: EKG: [] Radiology/Procedures: Radiology/Procedures: [] Heart Score: C/O Chest Pain: N/A Risk Factors: Risk Factors: DM, Current or recent (<one month) smoker, HTN, HLP, family history of CAD, obesity. Risk Scores: Score 0 - 3: 2.5% MACE over next 6 weeks - Discharge Home Score 4 - 6: 20.3% MACE over next 6 weeks - Admit for Clinical Observation Score 7 - 10: 72.7% MACE over next 6 weeks - Early Invasive Strategies Course & Med Decision Making: Course & Med Decision Making Pertinent Labs and Imaging studies reviewed. (See chart for details) Advised patient stop the use of naproxen for now. Resume her Eliquis is previous plan. Monitor for bleeding. Call Dr. Valente's office for an earlier follow-up. Return if any concerns. Impression: 1. Left knee replacement post bleeding serous drainage from suture line. 2. History of lupus anticoagulation. [] Uriah Disclaimer: Dragpascual Disclaimer: This electronic medical record was generated, in whole or in part, using a voice recognition dictation system. Departure Departure: Referrals: AGNES CASTILLO MD (PCP) CRUZ JOAQUIN MD Sep 29, 2020 18:33
[2020-09-29 19:15] VITALS: BP 149/79
== END 2020-09-29 19:20 | disposition home or self-care (01) ==
LOC: ER 18:14
DX: T83.84XA Pain due to genitourinary prosthetic devices, implants and grafts, initial encounter (principal); K21.9 Gastro-esophageal reflux disease without esophagitis; I10 Essential (primary) hypertension; X58.XXXA Exposure to other specified factors, initial encounter; Y93.89 Activity, other specified; Y92.89 Other specified places as the place of occurrence of the external cause; Y99.8 Other external cause status
CPT/HCPCS: 99281

== ENCOUNTER 2020-12-12 14:09 | Emergency (ER) | payer MEDICARE, OTHER ==
[~2020-12-12] VITALS: Ht 154.9 cm; Wt 92.1 kg
--- NOTE | 2020-12-12 14:41 | PHYS DOC ---
Past History Past Surgical History: Other Alcohol Use: None Drug Use: None Adult General Chief Complaint Chief Complaint: NAUSEA/VOMITING/[facility] HPI Patient is a 70-year-old female presenting via POV for nausea vomit diarrhea. States she has lived in otherwise unremarkable life until having recent left knee replacement surgery August 2020 at [facility]. Reports complications ever since. States last week she saw her orthopedic surgeon and was cleared; however, she noticed a little hole that has been draining which concerned her with increased edema and erythema prompting her to see primary care physician. She was placed on Cipro 3 days ago at said visit. Ever since this time, she has been nauseous, admits x2 episodes of nonbloody nonbilious emesis and has had numerous episodes of watery diarrhea which is unusual for her. States she has had approximately 4-8 episodes daily for past 5 days that has been nonbloody. Admits recent hospitalization with said surgery and received several rounds of clindamycin at that time. No history of abnormal colonoscopies or C. difficile in the past. She has been afebrile. Review of Systems Review of Systems Fourteen body systems of review of systems have been reviewed. See HPI for pertinent positives and negative responses, other watkins all other systems are negative, non-pertinent or non-contributory Allergies Allergies Allergies Coded Allergies Type Severity Reaction Last Updated Verified Penicillins Allergy Intermediate 09/29/20 Yes Sulfa (Sulfonamide Antibiotics) Allergy Intermediate 09/29/20 Yes aspirin Allergy Intermediate 09/29/20 Yes cephalexin Allergy Intermediate 09/29/20 Yes codeine Allergy Intermediate 09/29/20 Yes azithromycin Allergy Unknown 09/29/20 Yes diclofenac Allergy Unknown 12/04/17 Yes metoclopramide Allergy Unknown 12/04/17 Yes Physical Exam Physical Exam Constitutional: Well developed, well nourished, no acute distress, non-toxic appearance. HENT: Normocephalic, atraumatic, bilateral external ears normal, oropharynx moist, no oral exudates, nose normal. Eyes: PERRLA, EOMI, conjunctiva normal, no discharge. Neck: Normal range of motion, no tenderness, supple, no stridor. Cardiovascular: Heart rate regular, sinus rhythm, no murmurs rubs or gallops Lungs & Thorax: Bilateral breath sounds clear to auscultation Abdomen: Bowel sounds normal, soft and protuberant, no tenderness, no masses, no pulsatile masses. Nonsurgical abdomen, no peritoneal signs Skin: Warm, dry, no erythema, no rash. There is a 5mm diameter hole present to inferior portion of left anterior knee overlying inferior patella that is open and draining clear serosanguineous liquid without palpable fluctuance, underlying abscess or streaking Back: No tenderness, no CVA tenderness. Extremities: No tenderness, no cyanosis, no clubbing, ROM intact, no edema. Patient's left knee consistent with recent total knee replacement and similar in appearance to contralateral side besides open draining area on anterior surface Neurologic: Alert and oriented X 3, grossly normal motor & sensory function, no focal deficits noted. Psychologic: Affect normal, judgement normal, mood normal. Current Patient Data Vital Signs Vital Signs Date Time Temp Pulse Resp B/P (MAP) Pulse Ox O2 Delivery O2 Flow Rate FiO2 12/12/20 14:35 98.3 92 20 135/76 95 Room Air Vital Signs Date Time Temp Pulse Resp B/P (MAP) Pulse Ox O2 Delivery O2 Flow Rate FiO2 12/12/20 16:27 76 20 125/68 (87) 98 Room Air 12/12/20 14:35 98.3 Lab Results Laboratory Tests Test 12/12/20 15:10 White Blood Count 6.9 x10^3/uL Red Blood Count 4.02 x10^6/uL Hemoglobin 11.4 g/dL Hematocrit 35.1 % Mean Corpuscular Volume 87 fL Mean Corpuscular Hemoglobin 28 pg Mean Corpuscular Hemoglobin Concent 32 g/dL Red Cell Distribution Width 15.0 % Platelet Count 417 x10^3/uL Neutrophils (%) (Auto) 65 % Lymphocytes (%) (Auto) 20 % Monocytes (%) (Auto) 13 % Eosinophils (%) (Auto) 2 % Basophils (%) (Auto) 1 % Neutrophils # (Auto) 4.5 x10^3uL Lymphocytes # (Auto) 1.4 x10^3/uL Monocytes # (Auto) 0.9 x10^3/uL Eosinophils # (Auto) 0.1 x10^3/uL Basophils # (Auto) 0.1 x10^3/uL Sodium Level 139 mmol/L Potassium Level 3.3 mmol/L Chloride Level 98 mmol/L Carbon Dioxide Level 30 mmol/L Anion Gap 11 Blood Urea Nitrogen 15 mg/dL Creatinine 1.1 mg/dL Estimated GFR (Cockcroft-Gault) 49.1 BUN/Creatinine Ratio 14 Glucose Level 123 mg/dL Calcium Level 8.9 mg/dL Total Bilirubin 0.2 mg/dL Aspartate Amino Transf (AST/SGOT) 28 U/L Alanine Aminotransferase (ALT/SGPT) 37 U/L Alkaline Phosphatase 126 U/L Troponin I Quantitative < 0.017 ng/mL Total Protein 6.9 g/dL Albumin 3.1 g/dL Albumin/Globulin Ratio 0.8 Current Medications Medications (Trade) Dose Ordered Sig/Rigo Route PRN Reason Start Time Stop Time Status Last Admin Dose Admin Vancomycin HCl (Vancomycin Oral Solution) 125 mg 1X ONCE PO 12/12/20 17:00 12/12/20 17:01 DC 12/12/20 16:56 EKG EKG EKG ordered and interpreted by myself at 1500hrs as sinus rhythm at 84 bpm, QTC 457 otherwise unremarkable intervals, left axis deviation, no obvious ischemic findings, no STEMI Radiology/Procedures Radiology/Procedures [] Heart Score C/O Chest Pain: No HEART Score for Chest Pain: HEART Score for Chest Pain Response (Comments) Value History Slighlty/Non-Suspicious 0 ECG Normal 0 Age > 65 2 Risk Factors >3 Risk Factors or Hx CAD 2 Troponin < Normal Limit 0 Total 4 Risk Factors: Risk Factors: DM, Current or recent (<one month) smoker, HTN, HLP, family history of CAD, obesity. Risk Scores: Risk Factors: DM, Current or recent (<one month) smoker, HTN, HLP, family history of CAD, obesity. Course & Med Decision Making Course & Med Decision Making Vitals stable. HPI, physical examination and comprehensive ER work-up nonconcerning for any emergent or surgical issues Patient on Cipro for recent complication status post left TKA. Reports issues with nausea and vomit in the past while taking this medication, likely cause of patient's symptoms today Patient high risk for C. difficile given recent hospitalization, age and clindamycin and other antibiotic use. PCR test obtained today. Joint decision made between start empiric treatment with p.o. vancomycin I contacted patient's primary care provider, no indication for hospitalization at this time but PCP is aware of patient and advise close follow-up by the end of the week in his office for repeat evaluation. I feel this is appropriate I disclosed entirety of ER findings and conversation with PCP with patient and sister at bedside. They were amenable to plan of care. All questions and concerns addressed prior to your departure home with new prescription for p.o. vancomycin Jeffreyon Disclaimer Uriah Disclaimer This electronic medical record was generated, in whole or in part, using a voice recognition dictation system. Departure Departure: Impression: Primary Impression: Nausea, vomiting, and diarrhea Additional Impression: At risk for Clostridioides difficile infection Disposition: HOME / SELF CARE / HOMELESS Condition: STABLE Referrals: AGNES CASTILLO MD (PCP) Patient Instructions: Clostridium Difficile Infection, Nausea and Vomiting, Va ncomycin oral solution Additional Instructions: You were seen for nausea, vomiting and diarrhea. Your physical exam, vitals, and comprehensive ER work-up was nonconcerning for any emergent or surgical issues. With that said, there is high concern for C. difficile infection as discussed and vancomycin antibiotic medication was started. Your primary care physician was contacted and ER course reviewed, he agreed there was no indication for hospitalization at this time. It is recommended that you contact his office first thing in the morning to review ER visit today and discussed need for close outpatient follow-up for repeat evaluation. You should return to the ED if you develop abdominal pain, fever > 100.3, black/bloody stools, bl ack/bloody vomiting, cannot keep water down, or any other new or concerning symptoms. Scripts Vancomycin Hcl (VANCOMYCIN HCL) 125 Mg Capsule 1 CAP PO QID for c. diff for 10 Days, #39 CAP 0 Refills Prov: JUD SHAW DO 12/12/20 Problem Qualifiers JUD SHAW DO Dec 12, 2020 14:41
[2020-12-12 15:39] LABS: BASO # 0.1 x10^3/uL (0.0-0.2); BASO % 1 % (0-3); EOS # 0.1 x10^3/uL (0.0-0.7); EOS % 2 % (0-3); HEMATOCRIT 35.1 % (36.0-47.0); HEMOGLOBIN 11.4 g/dL (12.0-15.5); LYMPH # 1.4 x10^3/uL (1.0-4.8); LYMPH % 20 % (24-48); MEAN CORPUSCULAR HEMOGLOBIN 28 pg (25-35); MEAN CORPUSCULAR HGB CONC 32 g/dL (31-37); MEAN CORPUSCULAR VOLUME 87 fL (79-100); MONO # 0.9 x10^3/uL (0.0-1.1); MONO % 13 % (0-9); NEUT # 4.5 x10^3uL (1.8-7.7); NEUT % 65 % (31-73); PLATELET COUNT 417 x10^3/uL (140-400); RED BLOOD COUNT 4.02 x10^6/uL (3.50-5.40); WHITE BLOOD COUNT 6.9 x10^3/uL (4.0-11.0)
[2020-12-12 15:47] LABS: CALCIUM 8.9 mg/dL (8.5-10.1); CREATININE 1.1 mg/dL (0.6-1.0); GFR 49.1; POTASSIUM 3.3 mmol/L (3.5-5.1)
[2020-12-12 15:53] LABS: ALBUMIN 3.1 g/dL (3.4-5.0); ALBUMIN/GLOBULIN RATIO 0.8 (1.0-1.7); TOTAL BILIRUBIN 0.2 mg/dL (0.2-1.0); TOTAL PROTEIN 6.9 g/dL (6.4-8.2)
[2020-12-12] MEDS ORDERED: VANC125C3 PO (16:18)
[2020-12-12 16:27] VITALS: BP 125/68
[2020-12-12] MEDS ORDERED: VANCOMYCIN 125 MG/2.5 ML ORAL SOLUTION. PO ONE (17:00)
--- NOTE | 2020-12-12 17:36 | EKG ---
[address] [address] Test Date: 2020-12-12 Test Time: 15:05:42 Pat Name: YANA ARORA Department: Room: Gender: F [employer] Manager: SRINIVASA : 1950 Requested By: JUD SHAW Order Number: [id number] Reading MD: Measurements Intervals [place] Rate: 84 P: 51 MD: 158 QRS: -7 QRSD: 98 T: 13 QT: 384 QTc: 457 Interpretive Statements SINUS RHYTHM LEFTWARD AXIS OTHERWISE NORMAL ECG RI6.02 No previous ECG available for comparison
== END 2020-12-12 16:58 | disposition home or self-care (01) ==
LOC: ER 14:09
DX: R11.2 Nausea with vomiting, unspecified (principal); R19.7 Diarrhea, unspecified; B96.89 Other specified bacterial agents as the cause of diseases classified elsewhere; Z88.0 Allergy status to penicillin; Z88.2 Allergy status to sulfonamides; Z88.6 Allergy status to analgesic agent; Z88.5 Allergy status to narcotic agent; Z88.1 Allergy status to other antibiotic agents; Z88.8 Allergy status to other drugs, medicaments and biological substances
CPT/HCPCS: 80053; 84484; 85025; 87493; 93005; 99284